=== PATIENT | female | born 1995 | race Caucasian/White ===

== ENCOUNTER 2020-03-25 08:00 | Outpatient (CLI) | payer BC, OTHER | END 2020-03-25 23:59 | disposition home or self-care (01) | LOC: LAB.R 08:00 | PROVIDERS: ATTEND Physician Assistant Medical | DX: J06.9 Acute upper respiratory infection, unspecified (principal); Z20.828 Contact with and (suspected) exposure to other viral communicable diseases | CPT/HCPCS: 81599 ==

== ENCOUNTER 2020-10-15 18:41 | Outpatient (CLI) | payer OTHER | END 2020-10-15 18:42 | disposition home or self-care (01) | LOC: COV 18:41 | PROVIDERS: ATTEND Family Medicine | DX: R05 Cough (principal); R53.83 Other fatigue; R09.81 Nasal congestion; J34.89 Other specified disorders of nose and nasal sinuses; Z20.822 Contact with and (suspected) exposure to COVID-19 ==

== ENCOUNTER 2024-10-18 20:02 | Inpatient (IN) ==
[2024-10-18] MEDS ORDERED: miSOPROStoL 200 MCG TABLET PR ONE (21:19)
[2024-10-18] MEDS ORDERED: miSOPROStoL 200 MCG TABLET PR PRN ×2 (21:19→22:33)
[2024-10-18 21:40] LABS: BASOPHILS # (AUTO) 0.1 10^3/uL (0.0-0.1); BASOPHILS % (AUTO) 0.4 %; EOSINOPHILS # (AUTO) 0.2 10^3/uL (0.0-0.7); EOSINOPHILS % (AUTO) 1.8 %; HCT - HEMATOCRIT 42.6 % (37.0-47.0); LYMPHOCYTES # (AUTO) 2.1 10^3/uL (1.5-3.5); LYMPHOCYTES % (AUTO) 17.1 %; MEAN CORPUSCULAR HEMOGLOBIN 30.8 pg (27.0-31.0); MEAN CORPUSCULAR HGB CONC 32.9 g/dL (32.0-36.0); MEAN CORPUSCULAR VOLUME 93.6 fL (81.0-99.0); MEAN PLATELET VOLUME 9.1 fL (7.9-10.8); MONOCYTES # (AUTO) 0.9 10^3/uL (0.0-1.0); MONOCYTES % (AUTO) 6.9 %; NEUTROPHILS % (AUTO) 72.7 %; PLT - PLATELET COUNT 195 10^3/uL (130-450); RED BLOOD COUNT 4.55 10^6/uL (4.20-5.40); RED CELL DISTRIBUTION WIDTH 12.4 % (12.0-15.0); WHITE BLOOD COUNT 12.4 x10^3/uL (4.8-10.8)
[2024-10-18] MEDS: miSOPROStoL 100 MCG TABLET BC SCH (21:40)
[2024-10-18] MEDS ORDERED: miSOPROStoL 100 MCG TABLET VG SCH (22:00)
--- NOTE | 2024-10-18 22:20 | HISTORY & PHYSICAL EXAMINATION ---
Admit History Smoking Status: Never smoker Meds/Allgy Home Medications Ambulatory Orders Medication Instructions Recorded Confirmed vits no.126-ferrous fum tab PO QDAY 08/08/24 10/11/24 28 mg iron-folic acid 800 mcg tablet (Classic ) levothyroxine 50 mcg capsule 50 mcg PO QDAY #90 caps 10/04/24 10/11/24 Allergies Allergies Allergy/AdvReac Type Severity Reaction Status Date / Time Penicillins Allergy Severe Rash Verified 10/11/24 13:06 [facility] Family History Family History (Updated 08/08/24 @ 09:17 by Anali Horvath LPN) Maternal grandmother Lymphoma Paternal grandmother Uterine cancer Brother Depressed Mother Anxiety Father Alcohol abuse Social History Social History (Updated 08/08/24 @ 09:17 by Anali Horvath LPN) Smoking Status: Never smoker Second hand tobacco smoke exposure: No Do you dip or chew tobacco?: No Do you vape?: No ETOH Use: None Substance Use: denies use Plan for Labor Plan For Labor I expect patient to be DC'd or transferred within 96 hours.: Yes Plan for Labor: HPI: Fabiola is a 29yo @ 41.0wks gestation by LMP c/w 1st trimester ultrasound who presents to [facility] for medical induction of labor secondary to postdates . She has been a patient of [facility] since her transfer of care from [facility] in [place], [place] at 33wks gestation. Upon arrival SVE was deferred secondary to recent SVE in the office and vertex with intact membrane and she denies contractions since that time. She reports intermittent cramping but denies anything consistent or overly uncomfortable. She denies vaginal bleeding or leakage of fluid and reports +FM. She will be admitted to [facility] for medical induction of labor. She is supported by her Andi gomez. Dating criteria: LMP: 01/05/2024 FOX by LMP: 10/11/2024 US: @ 13wks c/w LMP dating (FOX by U/S 10/12/2024) Final FOX: 10/11/2024 Hx: Medical Hx: Hypothyroidism Surgical Hx: none Social Hx: Never smoker. No ETOH or IVDA. is [employer]. Family Hx: Hypertension - father course: Blood type:O+ Antibody Screen:Negative CBC: 13.5/41.0/225 VZV Immune RUB: Immune HBsAg: NR HepC:NR RPR:NR HIV: NR Flu: 06/2024 Covid: No PAP: 04/08/2024 NILM HPV POSITIVE - needs repeat pap GC/CT: Negative HSV: denies self and partner Genetic testing: NIPT- Neg AFP- Neg FAS: 08/26/2024 Placenta: Anterior Cord: 3VC LETITIA: 1534 EFW: 2244g 50gm OGCT: 82 TDAP: 07/28 Breast Pump: 07/28 RSV: 08/22 CBC: 12.3/37.8/209 RPR: NR GBS: PCN allergy: 09/13/2024- Negative Delivery Plan: Epidural, , okay all baby meds PP BC: Paragard IUD Physical Exam: Normocephalic, atraumatic Heart RRR w/o M/G/R Lungs CTAB, abdomen gravid, soft, nontender FHR baseline 140s, moderate variability, + accels, no decels Contractions palpate mild occasionally with soft resting tone SVE deferred (most recent /-1), vertex. Bilateral LE's no edema Mood is good Assessment: 29yo @ 41.0wks gestation by LMP c/w 13wk U/S Postdates GBS negative FHR Category I Plan: Admit to [facility] for medical induction of labor with pre-induction cervical ripening with misoprostol 50mcg BC q 4hrs with repeat SVE at 0800am. Continuous monitoring. Nitrous oxide PRN. Jacuzzi PRN. Epidural per maternal request. Anticipate . Conclusion/Plan Lab Results 10/18/24 21:32
[2024-10-18] MEDS ORDERED: TRANEXAMIC ACID IN NACL 1,000 MG/100 ML BAG IV PRN (22:33)
[2024-10-18] MEDS ORDERED: SODIUM CHLORIDE FLUSH 0.9% 10 ML SYRINGE IVP PRN (22:33)
[2024-10-18] MEDS ORDERED: fentaNYL 100 MCG/2 ML VIAL IVP PRN (22:33)
[2024-10-18] MEDS ORDERED: LABETALOL 20 MG/4 ML SYRINGE IVP PRN ×3 (22:33)
[2024-10-18] MEDS ORDERED: hydrALAZINE INJ 20 MG/ML VIAL IVP PRN (22:33)
[2024-10-18] MEDS ORDERED: TERBUTALINE 1 MG/ML VIAL SUBQ PRN (22:33)
[2024-10-18] MEDS ORDERED: LACTATED RINGERS 1,000 ML IV PRN (22:33)
[2024-10-18] MEDS ORDERED: OXYTOCIN 10 UNIT/ML VIAL IM PRN (22:33)
[2024-10-18] MEDS ORDERED: miSOPROStoL 200 MCG TABLET BC PRN (22:33)
[2024-10-18] MEDS ORDERED: OXYTOCIN/SODIUM CHLORIDE 500 ML IV PRN (22:33)
[2024-10-18] MEDS ORDERED: NIFEdipine 10 MG CAPSULE PO PRN (22:33)
[2024-10-18] MEDS ORDERED: METHYLERGONOVINE 0.2 MG/ML VIAL IM PRN (22:33)
[2024-10-18] MEDS ORDERED: lidocaine 1% 20 ML MDV ID PRN (22:33)
[2024-10-18] MEDS ORDERED: SODIUM CHLORIDE FLUSH 0.9% 10 ML SYRINGE IVP SCH (23:00)
[2024-10-19 01:54] VITALS: O2SAT 98
[2024-10-19] MEDS: LACTATED RINGERS 1,000 ML IV SCH (02:40)
[2024-10-19] MEDS ORDERED: ROPIVACAINE 0.2% 200 MG/100 ML BAG EP ONE (03:19)
[2024-10-19] MEDS ORDERED: ONDANSETRON 4 MG/2 ML VIAL IVP PRN (03:52)
[2024-10-19] MEDS ORDERED: LACTATED RINGERS 500 ML IV ONE (03:52)
[2024-10-19] MEDS ORDERED: METOCLOPRAMIDE 10 MG/2 ML VIAL IVP PRN (03:52)
[2024-10-19] MEDS ORDERED: diphenhydrAMINE INJ 50 MG/ML VIAL IVP PRN (03:52)
[2024-10-19] MEDS ORDERED: NALOXONE 0.4 MG/ML VIAL IVP PRN (03:52)
[2024-10-19] MEDS ORDERED: ROPIVACAINE 0.2% 200 MG/100 ML BAG EP PRN (03:52)
[2024-10-19] MEDS ORDERED: ePHEDrine 50 MG/ML VIAL IVP PRN (03:52)
[2024-10-19] MEDS ORDERED: NALBUPHINE 10 MG/ML AMP IVP PRN (03:52)
--- NOTE | 2024-10-19 03:52 | ANESTHESIA PROCEDURE NOTE ---
Pre-Anesthesia VS, & Labs Diagnosis Surgical Diagnosis:: term labor pain Procedure Procedure: Labor epidural Vitals Vital Signs: Temp Pulse Resp BP Pulse Ox 36.7 C 79 16 106/72 98 10/19/24 01:05 10/19/24 01:05 10/19/24 01:05 10/19/24 01:05 10/19/24 01:05 NPO Last Fluid Intake: t/o noc Is Patient ?: Yes Lab Results Current Lab Results: Laboratory Tests 10/18/24 21:51: Blood Type Recheck O POSITIVE 10/18/24 21:32: WBC 12.4 H, RBC 4.55, Hgb 14.0, Hct 42.6, MCV 93.6, MCH 30.8, MCHC 32.9, RDW 12.4, Plt Count 195, MPV 9.1, Neut # (Auto) 9.0 H, Lymph # (Auto) 2.1, [place] # (Auto) 0.9, Eos # (Auto) 0.2, Baso # (Auto) 0.1, Absolute Nucleated RBC 0.00, Nucleated RBC % 0.0, Blood Type O POSITIVE, Antibody Screen NEGATIVE Lab results reviewed: Yes 10/18/24 21:32 Meds/Allgy Home Medications Ambulatory Orders Medication Instructions Recorded Confirmed vits no.126-ferrous fum tab PO QDAY 08/08/24 10/11/24 28 mg iron-folic acid 800 mcg tablet (Classic ) levothyroxine 50 mcg capsule 50 mcg PO QDAY #90 caps 10/04/24 10/11/24 Allergies Allergies Allergy/AdvReac Type Severity Reaction Status Date / Time Penicillins Allergy Severe Rash Verified 10/11/24 13:06 [facility] Surgical History Surgical History (Updated 10/19/24 @ 03:51 by Ronal Staley CRNA) [place] teeth extracted Family History Family History (Updated 08/08/24 @ 09:17 by Anali Horvath LPN) Maternal grandmother Lymphoma Paternal grandmother Uterine cancer Brother Depressed Mother Anxiety Father Alcohol abuse Social History Social History (Updated 08/08/24 @ 09:17 by Anali Horvath LPN) Smoking Status: Never smoker Second hand tobacco smoke exposure: No Do you dip or chew tobacco?: No Do you vape?: No ETOH Use: None Substance Use: denies use Anesthesia Exam (Expanded) Exam General: Alert, Oriented x3 and Cooperative Dental: WNL Mouth Openin Fingerbreadth Neck Mobility: Normal Mallampati classification: II Thyromental Distance: 4-6 cm Respiratory: No respiratory distress Cardiovascular: Regular rate Mental/Cognitive Status: Alert/Oriented X3 and Normal for patient Plan Plan Anesthesia Type: Epidural Consent for Procedure(s) Verified and Reviewed: Yes Code Status: Attempt Resuscitation ASA Classification ASA classification: 2-Mild systemic disease Is this case an emergency?: No
[2024-10-19] MEDS ORDERED: LIDOCAINE 2%-EPI 1:100000 20 ML MDV ONE (03:57)
[2024-10-19] MEDS ORDERED: SIMETHICONE CHEW 80 MG TABLET PO PRN (06:49)
[2024-10-19] MEDS ORDERED: OXYTOCIN/SODIUM CHLORIDE 500 ML IV PRN (06:49)
[2024-10-19] MEDS ORDERED: HYDROCORTISONE 1% CREAM 28 GM TUBE TOP PRN (06:49)
[2024-10-19] MEDS ORDERED: WITCH HAZEL/GLYCERIN 1 PAD TOP PRN (06:49)
--- NOTE | 2024-10-19 06:55 | DELIVERY NOTE ---
Delivery Note Delivery Comments (Free Text/Narrative) Delivery Comments (Free Text/Narrative): Labor: Bipl28gr @ 41.1 wks gestation by LMP c/w 13wk U/S presented to [facility] for medical induction of labor secondary to postdates on 10/18/2024 @ 1999. Cervical exam was deferred however most recent exam was 3/80/-1 and vertex. FHR demonstrated Category I pattern throughout labor. She received 2 doses of 50mcg BC misoprostol. SROM occurred at 0215 on 10/19/2024 and was noted to be a moderate amount of clear fluid. Normal labor course. Epidural placed per maternal request. She progressed to c/c/+1 at 0422. : Normal SVB of viable male infant on 10/19/2024 @ 0602. Nucal cord x 1 was reduced. The was placed on maternal abdomen, stimulated, dried, and placed skin to skin. 's were 8/9 at 1 and 5 min respectively. Pitocin administered via IV for hemostasis. The umbilical cord was allowed to stop pulsating at which time it was doubly clamped by CNM and cut by FOB. Cord blood was obtained. 3VC. Fundal massage and gentle cord traction applied for active ma nagement of the third stage. Placenta delivered spontaneously and intact at 0611. EBL 200mL. Fourth stage: Uterine fundus firm and there is no excessive bleeding. The perineum, vagina, and cervix were inspected and found to have a 2nd degree perineal laceration which was repaired using a 3-[address]-1 needle, in standard fashion and under sterile conditions. Vaginal examination following r epair was performed. Tissues well approximated. skin to skin contact maintained. Both mother and baby were left in stable condition.
[2024-10-19] MEDS: ACETAMINOPHEN 500 MG TABLET PO PRN (10:42)
[2024-10-19] MEDS: DOCUSATE SODIUM 100 MG CAPSULE PO SCH (10:42)
[2024-10-19] MEDS: IBUPROFEN 800 MG TABLET PO PRN (10:43)
--- NOTE | 2024-10-19 13:27 | PHARMACY PROGRESS NOTE ---
Best Possible Medication History Admit Date and Time: 10/18/242119 Home Medications Medication Instructions Recorded Confirmed Type vits no.126-ferrous fum 1 tab PO DAILY 08/08/24 10/19/24 History 28 mg iron-folic acid 800 mcg tablet (Classic ) levothyroxine 50 mcg capsule 50 mcg PO QDAC 10/19/24 10/19/24 History Processed by: Pharmacy Medications reviewed in ED?: No Medication History completed: Yes Patient Interview: Completed Secondary Source(s): Previous admit records [facility] Statement: As the person ultimately responsible for medication therapy, providers are able to order a medication from an existing home medication list in [facility] via the "Reconcile Routine" prior to Confirmation of that medication by peer support specialist. Such practice is discouraged except when the physician, in their clinical judgment, deems that a medical need exists for a medication without regard to previous use.
[2024-10-20 06:13] VITALS: BP 120/68; TEMP 97.7
--- NOTE | 2024-10-20 10:58 | Discharge Summary ---
Discharge Summary Admit Date: 10/18/24 Discharge Date: 10/20/24 HOSPITAL COURSE Hospital Course: Diagnosis on Admission: 1. 29yo @ 41.0wks gestation by LMP c/w 13wk U/S 2. Postdates 3. GBS negative 4 FHR Category I Diagnosis on Discharge: 1. 29yo s/p TSVD viable male 2. 3. Normal recovery Brief History: She is a patient of [facility] who presented on 10/18/2024 for medical induction of labor secondary to postdates . Cervical exam was initially deferred with post recent office exam and vertex. She received 2 doses of 50mcg BC misoprostol. SROM occurred at 0215 on 10/19/2024 and was noted to be a moderate amount of clear fluid. Epidural was placed per maternal request. She spontaneously progressed to deliver a viable male infant on 10/19/2024 @ 0602. Perineum was noted to have a 2nd degree perineal laceration which was repaired using a 2-[address]-1 needle in standard fashion and under sterile conditions. Apgars were 8/9 at 1 and 5 minutes respectively. EBL 200 mL. She has been doing well in her course. She is ambulating and tolerating a regular diet. She is urinating without difficulty and her lochia is normal. Her pain is well controlled with oral medications. She will be discharged home today on day #1 with instructions to continue taking her vitamin while and to continue taking Ibuprofen and Tylenol over the counter as needed for pain management. She intends to follow up with myself at [facility] in 1 week for routine visit or sooner if needed. She has been given precautions to call if she has any worsening fevers, chills, abdominal pain, increased vaginal bleeding or foul smelling vaginal lochia. Physical Exam: Normocephalic, atraumatic. Heart RRR w/o M/G/R, lungs CTAB, abdomen soft and nontender with fundus firm at U-1, perineum intact, light lochia rubra, bilateral LE's no edema. Mood is good. ALLERGIES Allergies Allergy/AdvReac Type Severity Reaction Status Date / Time Penicillins Allergy Severe Rash Verified 10/11/24 13:06 MEDICATIONS Ambulatory Orders Medication Instructions Recorded Confirmed vits no.126-ferrous fum 1 tab PO DAILY 08/08/24 10/19/24 28 mg iron-folic acid 800 mcg tablet (Classic ) levothyroxine 50 mcg capsule 50 mcg PO QDAC 10/19/24 10/19/24 LABS 10/18/24 21:32 Discharge Plan Discharge Patient Disposition: Home, Self Care Prescriptions: Continued levothyroxine 50 mcg capsule 50 mcg PO QDAC Classic 28 mg iron- 800 mcg tablet 1 tab PO DAILY Print Language: Sinhala Patient Instructions: Vaginal After, , Self Care Follow-up Care: Eloisa Mabry CNM, [facility] [Primary Care Provider] -
--- NOTE | 2024-10-20 14:53 | Labor Flowsheet ---
Labor Flowsheet Datetime Report Generated by CPN: 10/20/2024 14:52 Datetime: 10/20/2024 07:56 VITAL SIGNS NBP Sys/Tsering/Mean (mmHg): 111 : 71 : 81 Pulse: 77 Datetime: 10/19/2024 06:29 SpO2 (%): 98 Temperature Route: Oral PAIN Pain Scale: 1 Pain Type: N/A Datetime: 10/19/2024 06:14 LaborFlag: Labor Datetime: 10/19/2024 05:57 UTERINE ACTIVITY Monitor Mode: External Monitor Interventions for UA: [place] Adjusted Frequency (min): 1-2 Quality: Strong ASSESSMENT A Monitor Mode: External US FHR Baseline Rate : 130 FHR Baseline Changes: Bradycardia Variability: Moderate 6-25 bpm Accelerations: 15X15 Decelerations: Early; Late; Variable Category: Category II Pushing Position: Pushing with Contractions Pushing Progress: Descent with Pushing Datetime: 10/19/2024 05:44 Respirations: 18 Temperature (C): 36.7 Contraction Comments: pusing well with each contraction PATIENT CARE Oxygen Method: Room Air Datetime: 10/19/2024 05:13 STAGE 2 Pushing: Coached on Pushing Datetime: 10/19/2024 04:59 Duration (sec): 50-70 Resting Tone (Palpate): Relaxed Monitor Interventions for FHR: Ultrasound Adjusted Pain Presence: None/Denies Anesthesia Level Check: T9 Datetime: 10/19/2024 04:46 VAGINAL EXAM Dilatation (cm): 10.0 Effacement (%): 100 Station: 1 Vaginal Bleeding: Normal Show Cervix, Consistency: Soft Cervix, Position: Anterior Lie 'A': Longitudinal Datetime: 10/19/2024 04:41 Stage of : Labor COMMUNICATION Communication: Provider at Bedside Datetime: 10/19/2024 04:23 Notification Reason: Labor Status Datetime: 10/19/2024 04:02 Actions for Decelerations: Side to Side Datetime: 10/19/2024 03:43 Comments: difficulty tracing as patient sitting up for epidural Amniotic Fluid Color: Clear Amniotic Fluid Amount: Small Datetime: 10/19/2024 03:36 Epidural Procedure: Loading Dose Datetime: 10/19/2024 03:35 Patient Care Comments: sitting up for epidural Datetime: 10/19/2024 03:30 Anesthesia Comments: local given Datetime: 10/19/2024 03:25 PROCEDURE TIME OUT Procedure Verify: Correct Patient Identity; Correct Side and Site are Marked; Accurate Procedure Co nsent Form; Agreement on Procedure to be Done; Correct Patient Position; Relevant Images and Results are Properly Labeled and Displayed; Addressed Need to Administer Antibiotics or Fluids for Irrigation ; Safety Precautions Based on Patient History or Medication Use Epidural Positioning: Sitting Datetime: 10/19/2024 02:55 Pain Location: Abdomen Pain Coping: Requesting Pain Medication or Epidural Pain Assessment Comments: CNM and anaethesia called Datetime: 10/19/2024 02:54 ANESTHESIA Anesthesia Plans: Epidural Datetime: 10/19/2024 02:46 Patient Position/Activity: Walking; Birthing Ball Datetime: 10/19/2024 02:15 Membrane Status: Ruptured Membranes Rupture Method: Spontaneous Amniotic Fluid Odor: Normal Nitrazine: Positive Datetime: 10/19/2024 01:00 MEDICATIONS Cervical Ripening Agents: Cytotec @ Cervical Ripening Agents Other: 50mcg Medication Comments: Buccal Datetime: 10/18/2024 22:04 Vaginal Exam Comments: not done MATERNAL ASSESSMENT Level of Consciousness: Alert DTR's/Clonus: DTRs 2+; No Clonus Headache: Denies Breath Sounds, Left: Clear and Equal Breath Sounds, Right: Clear and Equal Nausea/Vomiting: Denies RUQ Epigastric Pain: Denies I/O Interventions: Clear Liquids Given TEACHING Instructional Method: Verbal Plan of Care: Plan of Care Discussed Unit Routine: [place] to Room; [place]; Bed; Infant Security; Phone/Cell Phone Use; Unit Personnel ; Handwashing; Monitoring Datetime: 10/18/2024 20:44 Provider Reviewed Strip: Yes Strip Reviewed by: Chelsi Clotilde Datetime: 10/18/2024 20:30 Membranes Ruptured Date/Time: 10/19/2024 02:15 PRE-INDUCTION CHECKLIST Orders on Chart: Yes H Record Available: Yes Gestational Age Documented: Yes 30min of Monitoring Prior: Yes 2 Accels of 15X15 Present: Yes No Late Decels Present: Yes Less than 2 Variable Decels: Yes Pt Meets Criteria for Induction: Yes
== END 2024-10-20 14:51 | disposition home or self-care (01) | DRG 807 ==
LOC: WFO 20:02 → FBP 20:03
PROVIDERS: ADMIT Nurse Practitioner Obstetrics & Gynecology; ATTEND Nurse Practitioner Obstetrics & Gynecology